=== PATIENT | female | born 1950 | race Caucasian/White ===

== ENCOUNTER → 2020-07-23 09:02 | Outpatient (CLI) | payer MEDICARE, SELFPAY ==
--- NOTE | 2020-07-23 | DI.MRI.S_ITS ---
PROCEDURE: MR LUMBAR SPINE WO CON INDICATIONS: Radiculopathy, lumbar region TECHNIQUE: Noncontrast sagittal T1 spin echo and T2 fast echo, sagittal STIR, axial T1 and T2 fast spin echo through the lumbar spine. In cases with scoliosis, additional coronal T2 fast spin echo may be performed. COMPARISON: [facility], , L-SPINE WITHOUT CONTRAST, 10/18/2012, 9:40. FINDINGS: Image quality: Excellent. Alignment and Curvature: No plain films are available for comparison, for numbering purposes. Thus, for the purposes of this examination, 5 lumbar type vertebral bodies will be presumed, as denoted on the montage panel. This should be confirmed and correlated with plain films, prior to any lumbar spinal intervention. There is loss of normal lumbar lordosis. Bone Marrow: Marrow is of normal overall signal. No acute vertebral body compression fractures. There is moderate reactive signal within the endplates adjacent to the to T9-T10, L2-L3, L4-L5, and L5-S1 intervertebral discs. There is mild reactive signal within the endplates adjacent to the T10-T11, T11-T12, T12-L1, L1-L2, and L3-L4 intervertebral discs. T11 hemangioma. Schmorl's node invaginate the superior T11 endplate. Spinal Cord: Conus medullaris terminates at the lower L1 level. Visualized cord demonstrates normal signal and size. Paraspinous Soft Tissues: No paravertebral masses. T12-L1: Moderate disc height loss and desiccation. Mild diffuse disc bulge. Mild facet and ligamentum flavum hypertrophy. Mild epidural lipomatosis. Mild canal stenosis. No foraminal stenosis. L1-L2: Mild disc height loss. Moderate disc desiccation. Mild diffuse disc bulge. Mild facet and ligamentum flavum hypertrophy. Mild epidural lipomatosis. Mild canal stenosis. Mild bilateral foraminal stenosis. No change. L2-L3: Moderate disc height loss and desiccation. Moderate diffuse disc bulge with superimposed right far lateral broad-based protrusion/osteophyte. Mild facet and ligamentum flavum hypertrophy. Moderate epidural lipomatosis. There is increased, severe canal stenosis. There is increased, moderate right foraminal stenosis. No change in mild left foraminal stenosis. L3-L4: Moderate disc height loss and desiccation. Moderate diffuse disc bulge with superimposed broad-based right far lateral protrusion. Mild facet and ligamentum flavum hypertrophy. Moderate epidural lipomatosis. There is increased, severe canal stenosis. There is no change in mild left foraminal stenosis. There is increased, moderate right foraminal stenosis. L4-L5: Moderate disc height loss and desiccation. Moderate diffuse disc bulge with superimposed broad-based left far lateral protrusion. Mild facet and ligamentum flavum hypertrophy. Moderate epidural lipomatosis. Increased, moderate canal stenosis. Increased, moderate left and mild right foraminal stenosis. L5-S1: Moderate disc height loss and desiccation. Moderate diffuse disc bulge. Mild facet and ligamentum flavum hypertrophy. Moderate epidural lipomatosis. Increased, moderate canal stenosis. Increased, moderate left foraminal stenosis. Increased, severe right foraminal stenosis with right L5 nerve root compression. IMPRESSION: 1. Multilevel degenerative disc and facet disease, as well as ligamentum flavum hypertrophy and epidural lipomatosis. 2. Multilevel canal stenosis, worst at L2-L3 and L3-L4, where there are increased, severe canal stenosis. 3. Multilevel foraminal stenoses, worst at L5-S1 on the right where there is increased, severe foraminal stenosis with associated L5 nerve root compression. Recommend correlation with clinical symptoms to ascertain relevance of this finding. 4. 5 lumbar type vertebral bodies were presumed for the current report. Plain films of the lumbar spine are recommended for confirmation, prior to any lumbar spinal intervention. Dictated by: Joseph Taylor M.D. on 07/23/2020 at 10:23 Approved by: Joseph Taylor M.D. on 07/23/2020 at 10:29
== END ==
PROVIDERS: PCP Family Medicine; Referring Provider Family Medicine; Visit Provider Psychiatry & Neurology Neurology
DX: M51.16 Intervertebral disc disorders with radiculopathy, lumbar region (principal); M51.17 Intervertebral disc disorders with radiculopathy, lumbosacral region; M48.061 Spinal stenosis, lumbar region without neurogenic claudication; M48.07 Spinal stenosis, lumbosacral region; E88.2 Lipomatosis, not elsewhere classified
CPT/HCPCS: 72148

== ENCOUNTER → 2022-06-12 12:25 | Outpatient (CLI) | payer OTHER, SELFPAY ==
--- NOTE | 2022-06-12 | DI.MRI.S_ITS ---
PROCEDURE: MR LUMBAR SPINE WO CON INDICATIONS: Radiculopathy, lumbar region TECHNIQUE: Noncontrast sagittal T1 spin echo and T2 fast echo, sagittal STIR, and T2 fast spin echo through the lumbar spine. In cases with scoliosis, additional coronal T2 fast spin echo may be performed. COMPARISON: [facility], MR, MR LUMBAR SPINE WO CON, 07/23/2020, 9:16. [facility], RG, SPINE LUMB 2 OR 3VW, 02/19/2022, 11:51. [facility], MR, L-SPINE WITHOUT CONTRAST, 10/18/2012, 9:40. FINDINGS: Image quality: This examination is limited by involuntary motion artifact. Alignment and Curvature: Mild levoconvex scoliotic curvature is noted. No focal AP alignment abnormality is seen. Bone Marrow: Marrow is of normal overall signal. No acute vertebral body compression fractures. Spinal Cord: Conus medullaris terminates at the T12-L1 level. Visualized cord demonstrates normal signal and size. Paraspinous Soft Tissues: No paravertebral masses. T12-L1: Mild loss of disc height is seen. Loss of disc signal is seen. Mild generalized disc bulge is seen. There is mild right-sided and no significant left-sided neural foraminal narrowing. No significant central canal narrowing is seen. L1-L2: The disc height is well-preserved. Loss of disc signal is seen at this level. Moderate disc bulge is seen, which is eccentric to the right. Mild to moderate facet hypertrophy is seen. There is moderate right-sided and mild left-sided neural foraminal narrowing. Moderate central canal narrowing is seen. There is slight progression of degenerative change compared to the prior. L2-L3: Moderate to severe loss of disc height and disc signal can be seen. Reactive marrow endplate changes are seen, which demonstrate mixed T1 weighted and T2-weighted signal, and are attributed to a combination of edema and fatty metaplasia (Modic type I and Modic type II changes). At least moderate disc bulge is seen, which is eccentric to the right. Moderate facet joint hypertrophy is seen. There is [id number] left-sided and moderate to severe right-sided neural foraminal narrowing. There is a degree of compression seen upon exiting right L2 nerve root. At least moderate central canal narrowing is seen at this level. When comparison is made with the prior images, these findings are similar. L3-L4: At least moderate loss of disc height and disc signal can be seen. Reactive marrow endplate changes are seen which are hypointense on T1-weighted imaging and hyperintense on T2 weighted imaging, which is most consistent with edema (Modic type I changes). At least moderate disc bulge is seen, which is eccentric to the right. There is at least moderate right-sided and moderate left-sided facet hypertrophy. There is [id number] left-sided and moderate to severe right-sided neural foraminal narrowing. There is a degree of compression seen upon the exiting right L3 nerve root. At least moderate central canal narrowing is seen. These imaging findings have progressed compared to the prior study. L4-L5: Moderate to severe loss of disc height and disc signal can be seen. Reactive marrow endplate changes are seen, which demonstrate mixed T1 weighted and T2-weighted signal, and are attributed to a combination of edema and fatty metaplasia (Modic type I and Modic type II changes). Moderate disc bulge is seen, which is eccentric to the left. Moderate facet joint hypertrophy is seen. There is moderate right-sided and moderate to severe left-sided neural foraminal narrowing. There is a degree of compression upon the exiting left L4 nerve root. At least moderate central canal narrowing is seen, which is exacerbated by prominent epidural fat. When comparison is made with the prior images, these findings are similar. L5-S1: At least moderate loss of disc height and disc signal can be seen. At least moderate disc bulge is seen. Moderate facet joint hypertrophy is seen. Reactive marrow endplate changes are seen, which are hyperintense on T1-weighted and T2-weighted imaging and most consistent with fatty metaplasia (Modic type II changes). At least moderate bilateral neural foraminal narrowing can be seen. There is a degree of compression seen upon the exiting nerve roots. At least moderate central canal narrowing is seen. When comparison is made with the prior images, these findings are similar. IMPRESSION: Multiple levels of lumbar spine degenerative change are seen, which are mildly progressed at the L1-L2 level and the L3-L4 level compared to 2020. Dictated by: Chris Cho M.D. on 06/12/2022 at 15:28 Approved by: Chris Cho M.D. on 06/12/2022 at 15:33
== END ==
PROVIDERS: PCP Family Medicine; Referring Provider Orthopaedic Surgery; Visit Provider Orthopaedic Surgery
DX: M47.26 Other spondylosis with radiculopathy, lumbar region (principal); M47.27 Other spondylosis with radiculopathy, lumbosacral region
CPT/HCPCS: 72148

== ENCOUNTER → 2022-09-05 10:53 | Outpatient (CLI) | payer OTHER, SELFPAY ==
--- NOTE | 2022-09-05 | DI.MRI.S_ITS ---
PROCEDURE: MR SHOULDER LT WO CON INDICATIONS: PAIN TECHNIQUE: Noncontrast oblique coronal T2 fast spin echo with fat saturation, oblique sagittal T1 spin echo and T2 fast spin echo with fat saturation, axial T1 spin echo and T2 fast spin echo with fat saturation through the shoulder. COMPARISON: [facility], RF, SI JOINT INJECTION, 08/25/2022, 14:16. FINDINGS: Image quality: Excellent. Rotator cuff: Low to moderate grade articular and bursal surface partial thickness tear involving distal supraspinatus at its insertion the humeral head is seen extending to musculotendinous junction. Distal infraspinatus tendinosis is noted. Low-grade intrasubstance partial-thickness tear involving distal subscapularis is seen. There is no full-thickness rotator cuff tendon rupture. Sagittal images demonstrate mild supraspinatus muscle atrophy. Bones and bursae: No bone marrow contusions or fractures. Moderate acromioclavicular joint osteoarthritic changes are seen with joint space narrowing, subchondral sclerosis and downward osteophyte formation depressing the musculotendinous junction of supraspinatus. Moderate glenohumeral joint osteoarthritic changes also seen with joint space narrowing and subchondral sclerosis. There is small amount of joint effusion and small to moderate amount of subacromial subdeltoid bursal fluid. Capsule and soft tissues: Signal abnormality and contour irregularity in superior anterior labrum at 12 to 2 o'clock position is seen consistent with superior anterior labral tear. Similar signal abnormality involving anterior inferior labrum at 4 to 6 o'clock position is also seen. The long head of the biceps tendon appears thickened. The rotator interval appears normal, without fibrosis. The coracohumeral ligament is normal in thickness. IMPRESSION: 1. Low to moderate grade articular and bursal surface partial thickness tear involving distal supraspinatus extending to musculotendinous junction. Distal infraspinatus tendinosis. Low-grade intrasubstance partial-thickness tear involving distal subscapularis. No full-thickness rotator cuff tendon rupture. Mild supraspinatus muscle atrophy. 2. Moderate acromioclavicular joint and glenohumeral joint osteoarthritis. No fracture or dislocation. Small to moderate amount of subacromial subdeltoid bursal fluid. 3. Finding is concerning for superior anterior labral tear at 12 to 2 o'clock position and anterior-inferior labral tear at 4 to 6 o'clock position. 4. Proximal intra-articular portion of long head of biceps tendinosis. Dictated by: Arslan Sykes M.D. on 09/07/2022 at 8:13 Approved by: Arslan Sykes M.D. on 09/07/2022 at 8:29
== END ==
PROVIDERS: PCP Family Medicine; Referring Provider Orthopaedic Surgery; Visit Provider Orthopaedic Surgery
DX: M75.112 Incomplete rotator cuff tear or rupture of left shoulder, not specified as traumatic (principal); M25.512 Pain in left shoulder; M19.012 Primary osteoarthritis, left shoulder
CPT/HCPCS: 73221

== ENCOUNTER → 2023-07-01 07:26 | Outpatient (CLI) | payer OTHER, SELFPAY ==
--- NOTE | 2023-07-01 07:28 | DI.MRI.S_ITS ---
PROCEDURE: MRFOOT LT WO CON INDICATIONS: Pain in left foot TECHNIQUE: Multiphasic, multisequence MRI of the forefoot was performed, without intravenous contrast administration. COMPARISON: None. FINDINGS: Image quality: Excellent. Bones and joints: [id number] midfoot and forefoot joint osteoarthritic changes are seen with joint space narrowing, subchondral sclerosis and marginal osteophyte formation most notably involving 1st MTP joint. Subcortical cystic changes are seen at 4th metatarsal base and 1st metatarsal head as well as 1st proximal phalangeal base. Osteoarthritic changes also noted involving articulation between 1st metatarsal head and sesamoids. Edema is noted involving medial and lateral sesamoids of 1st metatarsal head concerning for sesamoiditis. No definite fracture line is seen. No evidence of metatarsal stress fractures. Soft tissues: The visualized plantar foot muscles demonstrate normal signal and bulk. Visualized flexor and extensor tendons appear intact, without tenosynovitis. The distal insertions of the peroneus brevis and longus tendons appear intact. The principal Lisfranc ligament appears intact. No soft tissue ganglion cysts or bursal fluid collections. Sagittal images demonstrate partial-thickness tear involving lateral sesamoid phalangeal ligament of 1st MTP joint. No evidence of plantar plate tear is seen in 2nd through 5th MTP joints. IMPRESSION: 1. [id number] midfoot and forefoot joint osteoarthritis as described above. No acute fracture or dislocation. No metatarsal stress fractures. Edema within medial and lateral sesamoid bones of 1st metatarsal head concerning for sesamoiditis. 2. Low to moderate grade partial-thickness tear involving lateral sesamoid phalangeal ligament of 1st metatarsal head concerning for moderate grade turf toe injury. 3. Extensor and flexor tendons are grossly intact. Lisfranc ligament is intact. Dictated by: Arslan Sykes M.D. on 07/01/2023 at 9:37 Approved by: Arslan Sykes M.D. on 07/01/2023 at 9:42
== END ==
LOC: MRI 07:27
PROVIDERS: PCP Family Medicine; Referring Provider Physician Assistant Medical; Visit Provider Physician Assistant Medical
DX: S93.512A Sprain of interphalangeal joint of left great toe, initial encounter (principal); M19.072 Primary osteoarthritis, left ankle and foot; R93.6 Abnormal findings on diagnostic imaging of limbs; M79.672 Pain in left foot
CPT/HCPCS: 73718